=== PATIENT | female | born 1995 | race Caucasian/White ===

== ENCOUNTER 2016-11-15 19:35 | Emergency (ER) | payer OTHER ==
[~2016-11-15] VITALS: Ht 160 cm; Wt 50.8 kg
[~2016-11-15 19:35] MED LIST: PERCOCET 325 MG1 TA2 PO
[2016-11-15 19:54] VITALS: BP 122/75
[2016-11-15] MEDS ORDERED: LO LOESTRIN FE1 EACH PO (20:45)
--- NOTE | 2016-11-15 20:50 | ED GI/GU/ABDOMINAL COMPLAINT ---
History of Present Illness General Chief Complaint: Abdominal Pain/Flank Pain Stated Complaint: R LOWER ABD PAIN X 2 WEEKS Source: patient Exam Limitations: no limitations Vital Signs & Intake/Output Vital Signs & Intake/Output Vital Signs Date Time Temp Pulse Resp B/P B/P Pulse O2 O2 Flow FiO2 Mean Ox Delivery Rate 11/15 2048 98 Room Air 11/15 1953 98.9 74 16 122/75 99 Room Air Allergies Coded Allergies: cat dander (TRIGGERS ASTHMA, EYES SWELL 11/15/16) Reconcile Medications Norethindrone-E.estradiol-Iron (Lo Loestrin Fe 1-10 Tablet) 1MG-10(24) TABLET 1 TAB PO DAILY CONTROL (Reported) Triage Note: TRIAGE: RLQ PAIN X 2 WEEKS, BURNING IN NATURE BEFORE AND AFTER URINATION AND NOW REPORTS CONSTANT PAIN SINCE YESTERDAY. TENDER UPON PALPATION. DENIES N/V. LAST BM TODAY AND NORMAL. AFEBRILE. Triage Nurses Notes Reviewed? yes ? N Is pt currently ? No HPI: This patient is a 21-year-old female who presented to the emergency department today for evaluation of right lower quadrant pain. The patient began approximately one week ago. It has been intermittent and starts, "before and after I called the bathroom." She reports that the episodes lasted approximately one hour and several times a day. However, her symptoms began constant today while she was driving. She reported that the pain began burning in nature. Pain gets up to an 8 out of 10. The pain is nonradiating with no provoking or palliative factors. She has not had a decreased appetite. She denied any nausea, vomiting, constipation, diarrhea, urinary urgency, frequency, blood in the urine, fevers, chills, chest pain, or difficulty breathing. (KASSANDRA MILLER PA-C) Past History Travel History Traveled to [place] past 21 day No Medical History Any Pertinent Medical History? see below for history Neurological: NONE EENT: NONE Cardiovascular: NONE Respiratory: NONE Gastrointestinal: NONE Hepatic: NONE Renal: NONE Musculoskeletal: NONE Psychiatric: NONE Endocrine: NONE Blood Disorders: NONE Cancer(s): NONE HAZMAT TANKER DRIVER/Reproductive: NONE Surgical History Surgical History: non-contributory Psychosocial History What is your primary language Wolof Tobacco Use: Never used ETOH Use: occasional use Illicit Drug Use: denies illicit drug use Family History Hx Contributory? No (KASSANDRA MILLER PA-C) Review of Systems Review of Systems Constitutional: Reports: no symptoms. EENTM: Reports: no symptoms. Respiratory: Reports: no symptoms. Cardiovascular: Reports: no symptoms. GI: Reports: see HPI. Genitourinary: Reports: see HPI. Musculoskeletal: Reports: no symptoms. Skin: Reports: no symptoms. Neurological/Psychological: Reports: no symptoms. All Other Systems: Reviewed and Negative (KASSANDRA MILLER PA-C) Physical Exam Physical Exam Gastrointestinal: normal bowel sounds, soft, no organomegaly, TENDERNESS TO PALPATION IN THE LEFT UPPER QUADRANT AND RIGHT LOWER QUADRANT. nO REBOUND OR GUARDING. nEGATIVE rOVSING SIGN. nEGATIVE PSOAS SIGN. nEGATIVE OBTURATOR SIGN. nEGATIVE Chapman SIGN. nO MASSES OR HERNIAS APPRECIATED. nONDISTENDED Comments: Well-developed well-nourished person in no acute distress HEENT: Normal EENT exam, moist mucous membranes Pupils equally round and reactive to light. Neck: Supple, no lymphadenopathy Back: Normal gait. Normal inspection. No CVA tenderness Cardiovascular: Regular rate and rhythm with no murmurs Respiratory: No respiratory distress. Breath sounds clear to auscultation bilaterally with no wheezes rales or rhonchi Extremity: Normal and equal pulses Neuro: Alert oriented x3, cranial nerves II through XII grossly intact. Skin: No appreciable rash on exposed skin, skin is warm and dry. Psych: Mood and affect is normal Core Measures ACS in differential dx? No Severe Sepsis Present: No Septic Shock Present: No (KASSANDRA MILLER PA-C) Progress Differential Diagnosis: appendicitis, biliary colic, bowel obstruction, colon cancer, cholecystitis, diverticulitis, ectopic , endometritis, gastritis, hepatitis, ischemic bowel, inflamm bowel dis, intrauterine , kidney stone, ovarian cyst, ovarian torsion, pancreatitis, PID/cervicitis, PUD/ GERD, perforated viscous, threatened AB, UTI/pyelo Plan of Care: Orders Procedure Date/time Status Add-on Test (ER Only) 11/15 2032 Active LIPASE 11/15 2018 Complete DIRECT BILIRUBIN 11/15 2018 Complete COMPREHENSIVE METABOLIC PANEL 11/15 2018 Complete CBC WITHOUT DIFFERENTIAL 11/15 2018 Complete AMYLASE 11/15 2018 Complete URINE 11/15 1948 Complete URINALYSIS 11/15 1948 Complete Laboratory Tests 11/15/162044: Anion Gap 8, Estimated GFR > 60, BUN/Creatinine Ratio 15.0, Glucose 80, Calcium 9.2, Total Bilirubin 0.4, Direct Bilirubin 0.2, AST 21, ALT 38, Alkaline Phosphatase 57, Total Protein 7.2, Albumin 4.2, Globulin 3.0, Albumin/Globulin Ratio 1.4, Amylase 54, Lipase 111, CBC w Diff NO MAN DIFF REQ, RBC 4.57, MCV 90.7, MCH 30.6, RDW 12.7, MPV 7.5, Gran % 48.9, Lymphocytes % 38.6, Monocytes % 8.2, Eosinophils % 3.8, Basophils % 0.5, Absolute Granulocytes 2.3, Absolute Lymphocytes 1.8, Absolute Monocytes 0.4, Absolute Eosinophils 0.2, Absolute Basophils 0, PUBS MCHC 33.8 11/15/161957: Urine Color YEL, Urine Clarity CLEAR, Urine pH 7.0, Ur Specific [place] 1.015, Urine Protein NEG, Urine Ketones NEG, Urine Nitrite NEG, Urine Bilirubin NEG, Urine Urobilinogen 0.2, Ur Leukocyte Esterase NEG, Ur Microscopic EXAM NOT REQUIRED, Urine Hemoglobin NEG, Urine Glucose NEG, Urine Test NEGATIVE Diagnostic Imaging: Viewed by Me: CT Scan. Discussed w/RAD: CT Scan. Radiology Impression: PATIENT: PROMISE FAJARDO PRESENT AGE: 21 PATIENT ACCOUNT NO: [id number] : 94 LOCATION: [facility] ORDERING PHYSICIAN: KASSANDRA MILLER PA-C SERVICE DATE: 11/15/16 EXAM TYPE: CAT - CT ABD & PELVIS W IV CONTRAST EXAMINATION: CT ABDOMEN AND PELVIS WITH CONTRAST CLINICAL INFORMATION: Right lower quadrant abdominal pain. COMPARISON: None. TECHNIQUE: Multidetector volumetric imaging was performed of the abdomen and pelvis before and after the IV administration of 95 mL of Optiray 320 intravenous contrast. Sagittal and coronal reformatted images were obtained on the technologist's workstation. DLP: 247 mGy-cm FINDINGS: LUNG BASES : The visualized lung bases are unremarkable. LIVER, GALLBLADDER, AND BILIARY TREE: The liver is normal in size, shape, and attenuation. There is a moderate amount of periportal edema. No focal hepatic lesion or biliary ductal dilatation is present. The gallbladder is unremarkable with no evidence of radiopaque gallstones, gallbladder wall thickening, or obvious pericholecystic inflammatory changes. PANCREAS: Unremarkable. SPLEEN: Unremarkable. ADRENAL GLANDS: Unremarkable. KIDNEYS AND URETERS: The kidneys are normal in size, shape, and attenuation. No hydronephrosis, hydroureter, or calculi seen. No perinephric stranding. BLADDER: Unremarkable. GASTROINTESTINAL TRACT: Normal anatomic orientation of the stomach relative to the duodenum. Normal caliber of abdominal and pelvic bowel loops, without evidence of obstruction or ileus. No circumferential bowel wall thickening with surrounding inflammatory changes to suggest an underlying infectious or inflammatory enterocolitis. An air-filled tubular structure within the right hemipelvis may correspond to the appendix ( series 2, image 58). No acute inflammatory changes are identified within the right lower quadrant of the abdomen or within the right hemipelvis. No organizing intra-abdominal fluid collections or free intraperitoneal air. ABDOMINAL WALL: No significant hernia is appreciated. LYMPH NODES: No significant abdominal or pelvic adenopathy. VASCULAR: Patent abdominal vasculature. Normal course and caliber of the abdominal aorta and its branching vessels, without aneurysmal dilatation. PELVIC VISCERA: The bilateral ovaries appear symmetric. OSSEOUS STRUCTURES: No acute osseous abnormality. Normal alignment of the thoracolumbar spine. IMPRESSION: There is an air-filled tubular structure within the right hemipelvis. This may correspond to the appendix or may represent a decompressed loop of small bowel. No acute inflammatory changes are identified within the right lower quadrant of the abdomen or within the right hemipelvis. The bilateral ovaries appear symmetric. If there is a clinical concern for ovarian pathology, consider correlation with pelvic ultrasound. DICTATED BY: BRYANT WINTERS MD DATE/TIME DICTATED:11/15/162201 PAPER BUNDLER:RONAL DATE/TIME TRANSCRIBED:11/15/162201 CONFIDENTIAL, DO NOT COPY WITHOUT APPROPRIATE AUTHORIZATION. <Electronically signed in Other Vendor System> SIGNED BY: BRYANT WINTERS MD 11/15/162212 Initial ED EKG: none (KASSANDRA MILLER PA-C) Departure Departure Disposition: HOME OR SELF CARE Condition: Stable Clinical Impression Primary Impression: Abdominal pain Qualifiers: Abdominal location: unspecified location Qualified Code: R10.9 - Unspecified abdominal pain Referrals: CASE WEISS (PCP/Family) Additional Instructions: Please follow-up with your primary care physician. Return for any worsening symptoms or concerns. Departure Forms: Customer Survey General Discharge Information (KASSANDRA MILLER PA-C) PA/PROTOTYPE MODEL MAKER Co-Sign Statement Statement: ED Attending supervision documentation- [] I saw and evaluated the patient. I have also reviewed all the pertinent lab results and diagnostic results. I agree with the findings and the plan of care as documented in the PA's/PROTOTYPE MODEL MAKER's documentation. [X] I have reviewed the ED Record and agree with the PA's/PROTOTYPE MODEL MAKER's documentation. [] Additions or exceptions (if any) to the PAs/PROTOTYPE MODEL MAKER's note and plan are summarized below: [] (SARAH ALATORRE,ELIZABETH Cota)
[2016-11-15 20:56] LABS: ABSOLUTE BASOPHIL COUNT 0 /CUMM (0.0-0.2); ABSOLUTE EOSINOPHIL COUNT 0.2 /CUMM (0.0-0.7); ABSOLUTE GRANULOCYTE CT 2.3 /CUMM (1.4-6.5); ABSOLUTE LYMPH COUNT 1.8 /CUMM (1.2-3.4); ABSOLUTE MONOCYTE COUNT 0.4 /CUMM (0.10-0.60); BASOPHIL % 0.5 % (0.0-2.0); EOSINOPHIL % 3.8 % (0-5); GRANULOCYTE % 48.9 % (42.2-75.2); HEMATOCRIT 41.4 % (37-47); MEAN CORPUSCULAR HGB 30.6 PG (27.0-31.0); MEAN CORPUSCULAR HGB CONC 33.8 G/DL (33.0-37.0); MEAN CORPUSCULAR VOLUME 90.7 FL (81.0-99.0); MEAN PLATELET VOLUME 7.5 FL (7.4-10.4); PLATELET COUNT 303 /CUMM (130-400); RBC DISTRIBUTION WIDTH 12.7 % (11.5-14.5); RED BLOOD CELL CT 4.57 /CUMM (4.20-5.40); WHITE BLOOD CELL COUNT 4.6 /CUMM (4.8-10.8)
--- NOTE | 2016-11-15 22:13 | CT SCAN REPORT ---
EXAMINATION: CT ABDOMEN AND PELVIS WITH CONTRAST CLINICAL INFORMATION: Right lower quadrant abdominal pain. COMPARISON: None. TECHNIQUE: Multidetector volumetric imaging was performed of the abdomen and pelvis before and after the IV administration of 95 mL of Optiray 320 intravenous contrast. Sagittal and coronal reformatted images were obtained on the technologist's workstation. DLP: 247 mGy-cm FINDINGS: LUNG BASES: The visualized lung bases are unremarkable. LIVER, GALLBLADDER, AND BILIARY TREE: The liver is normal in size, shape, and attenuation. There is a moderate amount of periportal edema. No focal hepatic lesion or biliary ductal dilatation is present. The gallbladder is unremarkable with no evidence of radiopaque gallstones, gallbladder wall thickening, or obvious pericholecystic inflammatory changes. PANCREAS: Unremarkable. SPLEEN: Unremarkable. ADRENAL GLANDS: Unremarkable. KIDNEYS AND URETERS: The kidneys are normal in size, shape, and attenuation. No hydronephrosis, hydroureter, or calculi seen. No perinephric stranding. BLADDER: Unremarkable. GASTROINTESTINAL TRACT: Normal anatomic orientation of the stomach relative to the duodenum. Normal caliber of abdominal and pelvic bowel loops, without evidence of obstruction or ileus. No circumferential bowel wall thickening with surrounding inflammatory changes to suggest an underlying infectious or inflammatory enterocolitis. An air-filled tubular structure within the right hemipelvis may correspond to the appendix (series 2, image 58). No acute inflammatory changes are identified within the right lower quadrant of the abdomen or within the right hemipelvis. No organizing intra-abdominal fluid collections or free intraperitoneal air. ABDOMINAL WALL: No significant hernia is appreciated. LYMPH NODES: No significant abdominal or pelvic adenopathy. VASCULAR: Patent abdominal vasculature. Normal course and caliber of the abdominal aorta and its branching vessels, without aneurysmal dilatation. PELVIC VISCERA: The bilateral ovaries appear symmetric. OSSEOUS STRUCTURES: No acute osseous abnormality. Normal alignment of the thoracolumbar spine. IMPRESSION: There is an air-filled tubular structure within the right hemipelvis. This may correspond to the appendix or may represent a decompressed loop of small bowel. No acute inflammatory changes are identified within the right lower quadrant of the abdomen or within the right hemipelvis. The bilateral ovaries appear symmetric. If there is a clinical concern for ovarian pathology, consider correlation with pelvic ultrasound.
== END 2016-11-15 22:22 ==
LOC: ERH 19:35
PROVIDERS: Emergency Medicine
DX: R10.12 Left upper quadrant pain (principal); R10.31 Right lower quadrant pain
CPT/HCPCS: 74177; 81003; 81025; 96361; 96374; J1885